=== PATIENT | male | born 1970 | race Caucasian/White ===

== ENCOUNTER 2017-06-15 00:29 | Inpatient (IN) | payer OTHER ==
[~2017-06-15 00:29] MED LIST: BUPIVACAINE HCL/PF 0.5% (5MG/ML) 10 ML VIAL IJ ONE
[2017-06-15 00:50] VITALS: BMI 30.4
--- NOTE | 2017-06-15 01:07 | PDOC ---
History of Present Illness - General Chief Complaint: Pain, Acute Stated Complaint: ABD PAIN Time Seen by Provider: 06/15/17 00:42 History Source: Patient Exam Limitations: No Limitations - History of Present Illness Travel History: No Initial Comments: 06/15/17 02:34 Best Contact:[phone] Pmhx:NIDDM/HTN Pshx:N/A Allergies: NKDA 46-year-old male presents to the emergency department complaining of periumbilical discomfort since last evening. Pain is described as 8/10 sharp nonradiating intermittent discomfort which is exacerbated on touch and alleviated minimally at rest. Patient denies nausea/vomiting, fever/chills, chest pain, shortness of breath, flank pains, urinary symptoms: Frequency/ urgency/hesitancy, hematuria. Patient denied having previous similar symptoms. Past History - Past Medical History Allergies/Adverse Reactions: Allergies Allergy/AdvReac Type Severity Reaction Status Date / Time No Known Allergies Allergy Verified 06/15/17 00:39 Home Medications: Ambulatory Orders Amlodipine Besylate/Benazepril [Lotrel 5-40 mg Capsule] 1 each PO DAILY Metformin HCl 500 mg PO BID 02/22/17 Polyvinyl Alcohol/Povidone [Artificial Tears Drops] 15 ml OP Q1H #2 drops Valacyclovir HCl [Valtrex] 1,000 mg PO TID #21 tablet 02/23/17 predniSONE [Deltasone -] 60 mg PO DAILY #15 tablet 02/23/17 COPD: No Diabetes: Yes (type 2) HTN: Yes - Suicide/Smoking/Psychosocial Hx Smoking History: Never smoked Have you smoked in the past 12 months: No Information on smoking cessation initiated: No Hx Alcohol Use: No Drug/Substance Use Hx: No Review of Systems - Review of Systems Able to Perform ROS?: Yes Comments:: 06/15/17 02:36 CONSTITUTIONAL: Absent: fever, chills, diaphoresis, generalized weakness, malaise, loss of appetite HEENT: Absent: rhinorrhea, nasal congestion, throat pain, throat swelling, difficulty swallowing, mouth swelling, ear pain, eye pain, visual Changes CARDIOVASCULAR: Absent: chest pain, loss of consciousness, palpitations, irregular heart rate, peripheral edema RESPIRATORY: Absent: cough, shortness of breath, dyspnea with exertion, orthopnea, wheezing, stridor, hemoptysis GASTROINTESTINAL: +periumbilical tenderness Absent: abdominal distension, nausea, vomiting, diarrhea, constipation, melena, hematochezia GENITOURINARY: Absent: dysuria, frequency, urgency, hesitancy, hematuria, flank pain, genital pain MUSCULOSKELETAL: Absent: myalgia, arthralgia, joint swelling SKIN: Absent: rash, itching, pallor HEMATOLOGIC/IMMUNOLOGIC: Absent: easy bleeding, easy bruising, lymphadenopathy, frequent infections ENDOCRINE: Absent: unexplained weight gain, unexplained weight loss, heat intolerance, cold intolerance NEUROLOGIC: Absent: headache, focal weakness or paresthesias, dizziness, unsteady gait, seizure, mental status changes, bladder or bowel incontinence PSYCHIATRIC: Absent: anxiety, depression, suicidal or homicidal ideation, hallucinations. Is the patient limited Spanish proficient: No *Physical Exam - Vital Signs Last Vital Signs Temp Pulse Resp BP Pulse Ox 98.3 F 96 H 20 118/76 98 06/15/17 00:39 06/15/17 00:39 06/15/17 00:39 06/15/17 00:39 06/15/17 00:39 - Physical Exam Comments: 06/15/17 02:36 GENERAL: Well developed, well nourished. Awake and alert. No acute distress. HEENT: Normocephalic, atraumatic. PERRLA, EOMI. No conjunctival pallor. Sclera are non- icteric. Moist mucous membranes. Oropharynx is clear. NECK: Supple. Full ROM. No JVD. Carotid pulses 2+ and symmetric, without bruits. No thyromegaly. No lymphadenopathy. CARDIOVASCULAR: Regular rate and rhythm. No murmurs, rubs, or gallops. Distal pulses are 2+ and symmetric. PULMONARY: No evidence of respiratory distress. Lungs clear to auscultation bilaterally. No wheezing, rales or rhonchi. ABDOMINAL: +Periumbilical pain on palp Soft. Non-distended. No rebound or guarding. No organomegaly. Normoactive bowel sounds. MUSCULOSKELETAL Normal range of motion at all joints. No bony deformities or tenderness. No CVA tenderness. EXTREMITIES: No cyanosis. No clubbing. No edema. No calf tenderness. SKIN: Warm and dry. Normal capillary refill. No rashes. No jaundice. ED Treatment Course - LABORATORY CBC & Chemistry Diagram: 06/15/17 02:05 06/15/17 02:05 - RADIOLOGY Radiograph Interpretation: 06/15/17 02:37 CT abd/pelvis with po/iv contrast: Impression: Small embolic or hernia containing omental fat. There is straining in the herniated fat and in the surrounding fat suggesting vascular congestion inflammation possible incarceration Progress Note - Progress Note Progress Note: 0401hrs: Called STORMY [phone] 0449hrs: called [facility]ARLY 0548hrs: Called KARLY/ Dr. Sharif cosmetics and toiletries salesperson 0556hrs: Medical Decision Making - Medical Decision Making 06/15/17 06:34 46-year-old male presents to the ER complaining of umbilical tenderness. Suspect incarcerated umbilical hernia. CT abdomen and pelvis done shows omentum possible incarceration. Spoke to general surgeonDr. Sharif who will see the patient within the hour as a surgical consult *DC/Admit/Observation/Transfer Diagnosis at time of Disposition: Umbilical hernia, incarcerated - Discharge Dispostion Condition at time of disposition: Stable Admit: Yes - Referrals Referrals: Everett Love [Primary Care Provider] - - Patient Instructions - Post Discharge Activity
[2017-06-15] MEDS ORDERED: morphine CARPU-JECT 2 MG/1 ML DISP.SYRIN IVPUSH ONE (01:08)
[2017-06-15] MEDS ORDERED: SODIUM CHLORIDE 1,000 ML IV STA (01:08)
[2017-06-15] MEDS ORDERED: morphine SULFATE 4 MG/ML VIAL ONE ×2 (01:51→05:27)
[2017-06-15 02:32] LABS: BASO % 0.6 % (0-2.0); EOS % 1.9 % (0-4.5); HEMATOCRIT 42.4 % (35.4-49); LYMPH % 38.8 % (8-40); MCH 32.6 pg (25.7-33.7); MCHC 35.5 g/dl (32.0-35.9); MEAN CELL VOLUME 91.9 fl (80-96); MEAN PLT VOLUME 8.6 fl (7.5-11.1); MONO % 11.2 % (3.8-10.2); NEUT % 47.5 % (42.8-82.8); PLATELET COUNT 313 K/MM3 (134-434); RBC 4.61 M/mm3 (4.00-5.60); RDW 12.4 % (11.9-15.9); WHITE BLOOD COUNT 13.4 K/mm3 (4.0-10.0)
[2017-06-15 03:06] LABS: ALBUMIN 4.1 g/dl (3.4-5.0); ANION GAP 13 (8-16); BILIRUBIN,TOTAL 0.5 mg/dL (0.2-1.0); BLOOD UREA NITROGEN 19 mg/dL (7-18); CALCIUM 9.3 mg/dL (8.5-10.1); CHLORIDE 103 mmol/L (98-107); CO2 23 mmol/L (21-32); CREATININE 0.6 mg/dL (0.7-1.3); GLUCOSE,RANDOM 110 mg/dL (74-106); SGPT/ALT 41 U/L (12-78); SODIUM 139 mmol/L (136-145); TOT PROT 7.6 g/dl (6.4-8.2)
[2017-06-15 03:07] LABS: ALK PHOS 80 U/L (45-117)
[2017-06-15 03:09] LABS: POTASSIUM 4.5 mmol/L (3.5-5.1); SGOT/AST 28 U/L (15-37)
[2017-06-15] MEDS ORDERED: morphine CARPU-JECT 4 MG/1 ML DISP.SYRIN IVPUSH ONE (05:24)
[2017-06-15] MEDS ORDERED: SODIUM CHLORIDE 1,000 ML IV SCH ×2 (06:15)
--- NOTE | 2017-06-15 08:03 | HP ---
Admitting History and Physical - Primary Care Physician PCP: Everett Love ([facility]) - Admission Chief Complaint: umbilical pain, redness, lump History of Present Illness: 46yoM with HTN, DM2, smoker, who has had small reducible bulge at umbilicus historically, noticed it coming in and out over last few days, but it always went back in. Yesterday, he noticed it did not anymore, and was getting painful and reddened. No nausea or vomiting, no fever or chills, no change in bowel habits, last BM yesterday, normal. He came to ER around midnight, last po was couple hours prior. In ER, wbc is 13, and CT showed fat-containing hernia with inflammatory changes but no bowel content. He has been hydrated and kept NPO. He is locally tender but without much pain and afebrile. 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 Home Medications - Allergies Allergies/Adverse Reactions: Allergies Allergy/AdvReac Type Severity Reaction Status Date / Time No Known Allergies Allergy Verified 06/15/17 00:39 - Home Medications Home Medications: Ambulatory Orders Amlodipine Besylate/Benazepril [Lotrel 5-40 mg Capsule] 1 each PO DAILY Metformin HCl 500 mg PO BID 02/22/17 Polyvinyl Alcohol/Povidone [Artificial Tears Drops] 15 ml OP Q1H #2 drops Family Disease History - Family Disease History Family History: Unremarkable Review of Systems - Review of Systems Constitutional: denies: Chills, Fever Eyes: reports: Other (uses glasses for distance). denies: Recent Change in Vision HENT: denies: Difficult Swallowing, Hearing Loss, Throat Pain Neck: denies: Swollen Glands, Tenderness Cardiovascular: denies: Chest Pain, Palpitations Respiratory: denies: Cough, SOB Gastrointestinal: reports: Abdominal Pain (with hpi). denies: Constipation, Diarrhea, Nausea, Vomiting Genitourinary: denies: Burning, Dysuria, Frequency, Urgency Musculoskeletal: reports: Back Pain (sometimes, neck/shoulders), Extremity Pain (lower legs sometimes). denies: Joint Pain, Muscle Pain Integumentary: reports: Change in Color (pink periumbilically, with hpi), Erythema. denies: Rash Neurological: reports: Headache (occasionally). denies: Dizziness Psychiatric: reports: Anxiety. denies: Depression Physical Examination Vital Signs: Vital Signs Temperature 97.7 F 06/15/17 07:33 Pulse Rate 76 06/15/17 07:33 Respiratory Rate 18 06/15/17 07:33 Blood Pressure 126/88 06/15/17 07:33 O2 Sat by Pulse Oximetry (%) 98 06/15/17 07:33 Constitutional: Yes: Well Nourished, No Distress, Anxious (mildly) Eyes: Yes: Conjunctiva Clear, EOM Intact HENT: Yes: Atraumatic, Normocephalic Neck: Yes: Supple, Trachea Midline Cardiovascular: Yes: Regular Rate and Rhythm. No: Murmur Respiratory: Yes: Regular, CTA Bilaterally. No: Wheezes Gastrointestinal: Yes: Normal Bowel Sounds, Soft, Abdomen, Obese, Hernia ( umbilical/periumbilical, not reducible, tender; skin deep pink with 5-8cm surrounding leaf tinner pink on skin), Tenderness (periumbilical/umbilical). No: Distention ...Rectal Exam: Yes: Deferred Renal/: No: CVA Tenderness - Left, CVA Tenderness - Right Musculoskeletal: No: Joint Stiffness, Joint Swelling Extremities: No: Cool, Cyanosis Edema: No Peripheral Pulses WNL: Yes Integumentary: Yes: Erythema (periumbilical and surrounding as noted above). No : Jaundice, Rash Neurological: Yes: Alert, Oriented Psychiatric: Yes: Alert, Oriented Labs: CBC, BMP 06/15/17 02:05 06/15/17 02:05 Imaging - Results Cat Scan: Image Reviewed (images personally reviewed - umbilical/periumbilical hernia with fatty content, appears inflamed, no bowel content) Problem List - Problems (1) Incarcerated ventral hernia Assessment/Plan: with associated erythema/cellulitis admit satellite/23H NPO/IVF until postop DVT prophylaxis IV antibiotics with plan to transition to oral for home in at least 24 hrs pending resolution of cellulitis FS with SSI - hold metformin [address] w/IV contrast continue home BP meds pain meds prn Discussed with patient risks, benefits and alternatives of laparoscopic possible open incarcerated ventral hernia repair, including but not limited to bleeding, infection, injury to intraabdominal structures, hernia development or recurrence; alternatives include antibiotics and no surgery - risks of this include progression of cellulitis, skin and fat necrosis, sepsis, . Patient agreeable to proceed with operation - will take to OR emergently for above. Informed consent signed for same. Code(s): K46.0 - UNSP ABDOMINAL HERNIA WITH OBSTRUCTION, WITHOUT GANGRENE (2) Dehydration, mild Assessment/Plan: IV fluid resuscitation anticipate resuming po postop Code(s): E86.0 - DEHYDRATION (3) Hypertension Assessment/Plan: continue home med Code(s): I10 - ESSENTIAL (PRIMARY) HYPERTENSION Qualifiers: Hypertension type: essential hypertension Qualified Code(s): I10 - Essential (primary) hypertension (4) Diabetes mellitus type 2, controlled, without complications Assessment/Plan: FS with SSI while here Code(s): E11.9 - TYPE 2 DIABETES MELLITUS WITHOUT COMPLICATIONS Qualifiers: Diabetes mellitus skilled nursing insulin use: without appliance sales associate use Qualified Code(s): E11.9 - Type 2 diabetes mellitus without complications (5) Tobacco dependence due to cigarettes Assessment/Plan: pt declined nicotine patch Code(s): F17.210 - NICOTINE DEPENDENCE, CIGARETTES, UNCOMPLICATED
[2017-06-15] MEDS ORDERED: LACTATED RINGERS SOLUTION 1,000 ML/1,000 ML INFUS.BAG IV SCH (08:45)
[2017-06-15] MEDS ORDERED: morphine SULFATE 4 MG/ML VIAL IM PRN ×3 (08:49→13:02)
[2017-06-15] MEDS ORDERED: IBUPROFEN 400 MG TABLET (FP) PO PRN ×3 (08:49→19:00)
[2017-06-15] MEDS ORDERED: ACETAMINOPHEN 325 MG TABLET (FP) PO PRN (08:49)
[2017-06-15] MEDS ORDERED: oxyCODONE HCL 5 MG TABLET PO PRN (08:52)
[2017-06-15] MEDS ORDERED: PROMETHAZINE HCL 25 MG/1 ML VIAL IVPUSH PRN (08:53)
[2017-06-15] MEDS ORDERED: ONDANSETRON 4 MG/2 ML VIAL IVPUSH PRN ×2 (08:53→13:02)
[2017-06-15] MEDS ORDERED: VANCOMYCIN 1 GRAM (PRE-DOCKED) 1,000 MG/250 ML BAG IVPB STA (08:55)
[2017-06-15] MEDS ORDERED: VANCOMYCIN 1 GRAM (PRE-DOCKED) 1,000 MG/250 ML BAG IVPB ONE (08:56)
[2017-06-15] MEDS ORDERED: LACTATED RINGERS SOLUTION 1,000 ML IV SCH (09:00)
[2017-06-15] MEDS ORDERED: VANCOMYCIN 1,000 MG in DEXTROSE 5%-WATER - 250 ML IVPB ONE (09:20)
[2017-06-15] MEDS ORDERED: PROPOFOL 20 ML ONE (09:41)
[2017-06-15] MEDS ORDERED: ROCURONIUM BROMIDE 50 MG/5 ML VIAL ONE ×2 (09:42→11:50)
[2017-06-15] MEDS ORDERED: LIDOCAINE HCL/PF 2% SDV 5ML VIAL ONE (09:42)
[2017-06-15] MEDS ORDERED: MIDAZOLAM HCL 2 MG/2 ML SINGLE DOSE VIAL ONE (09:42)
[2017-06-15] MEDS ORDERED: BUPIVACAINE HCL/PF 0.5% (5MG/ML) 10 ML VIAL ONE (10:29)
[2017-06-15] MEDS ORDERED: INSULIN SLIDING SCALE (NOVOLOG) 1 VIAL SQ SCH (11:00)
[2017-06-15] MEDS ORDERED: DEXAMETHASONE SOD PHOSPHATE 4 MG/1 ML VIAL ONE (11:05)
[2017-06-15] MEDS ORDERED: DESFLURANE GAS 240 ML BOTTLE IH ONE (11:20)
[2017-06-15] MEDS ORDERED: NEOSTIGMINE METHYLSULFATE 0.5 MG/ML - 10 ML MDV ONE (12:17)
[2017-06-15] MEDS ORDERED: GLYCOPYRROLATE 0.2 MG/1 ML VIAL ONE (12:17)
[2017-06-15] MEDS ORDERED: KETOROLAC TROMETHAMINE 30 MG/1 ML VIAL ONE (12:17)
[2017-06-15] MEDS ORDERED: BUPIVACAINE HCL/PF 0.5% (5MG/ML) 10 ML VIAL IJ ONE (12:23)
--- NOTE | 2017-06-15 12:51 | OP ---
Operative Note - Note: Operative Date: 06/15/17 Pre-Operative Diagnosis: incarcerated ventral hernia Operation: laparoscopic incarcerated ventral hernia repair Findings: incarcerated tip of omentum and preperitoneal fat reduced from hernia and excised, removed from abdomen; several portions of preperitoneal fat also removed around defect (~0.5cm) to allow for mesh placement; 11.4cm cher-ae heights Bard Echo PS mesh used for repair Implants: 11.4cm circular Bard Ventralight mesh with Echo PS Post-Operative Diagnosis: Same as Pre-op Surgeon: Freddy Sharif Swabber: Brian Brady Anesthesiologist/SENIOR ENERGY TRADER: Flavio Vieira Anesthesia: General, Local (15ml 0.5% marcaine) Specimens Removed: fat removed, none sent to pathology Estimated Blood Loss (mls): 10 Fluid Volume Replaced (mls): 400 (crystalloid) Operative Report Dictated: Yes
[2017-06-15] MEDS: LACTATED RINGERS SOLUTION 1,000 ML IV SCH (13:55)
[2017-06-15] MEDS ORDERED: INSULIN (NOVOLOG) ASPART 100 UNITS/ML 10ML VIAL ONE ×2 (16:55→17:56)
[2017-06-15] MEDS: INSULIN SLIDING SCALE (NOVOLOG) 1 VIAL SQ SCH ×2 (17:09→21:48)
[2017-06-15] MEDS ORDERED: ceFAZolin 2 GRAM PREMIX BAG IVPB SCH (18:00)
[2017-06-15] MEDS: ceFAZolin 2 GRAM PREMIX BAG IVPB SCH (18:02)
[2017-06-15] MEDS: oxyCODONE HCL 5 MG TABLET PO PRN (18:13)
[2017-06-15] MEDS: ACETAMINOPHEN 325 MG TABLET (FP) PO PRN (18:13)
[2017-06-15] MEDS ORDERED: PNEUMOC 13-VAL CONJ-DIP CRM/PF 0.5 ML DISP.SYRIN IM ONE (19:00)
[2017-06-16] MEDS: oxyCODONE HCL 5 MG TABLET PO PRN ×4 (00:46→16:26)
[2017-06-16] MEDS: ACETAMINOPHEN 325 MG TABLET (FP) PO PRN ×2 (00:47→07:04)
[2017-06-16] MEDS: LACTATED RINGERS SOLUTION 1,000 ML IV SCH (00:58)
[2017-06-16] MEDS: ceFAZolin 2 GRAM PREMIX BAG IVPB SCH ×3 (02:15→17:06)
[2017-06-16] MEDS: INSULIN SLIDING SCALE (NOVOLOG) 1 VIAL SQ SCH ×4 (06:26→21:21)
[2017-06-16 07:50] LABS: BASO % 0.1 % (0-2.0); EOS % 0.2 % (0-4.5); HEMOGLOBIN 12.9 GM/dL (11.7-16.9); LYMPH % 24.2 % (8-40); MCH 31.9 pg (25.7-33.7); MCHC 34.8 g/dl (32.0-35.9); MEAN CELL VOLUME 91.7 fl (80-96); MEAN PLT VOLUME 8.7 fl (7.5-11.1); MONO % 11.7 % (3.8-10.2); NEUT % 63.8 % (42.8-82.8); PLATELET COUNT 277 K/MM3 (134-434); RBC 4.03 M/mm3 (4.00-5.60); RDW 12.3 % (11.9-15.9); WHITE BLOOD COUNT 16.1 K/mm3 (4.0-10.0)
[2017-06-16 08:19] LABS: ANION GAP 12 (8-16); BLOOD UREA NITROGEN 14 mg/dL (7-18); CALCIUM 8.4 mg/dL (8.5-10.1); CHLORIDE 105 mmol/L (98-107); CO2 22 mmol/L (21-32); CREATININE 0.7 mg/dL (0.7-1.3); GLUCOSE,RANDOM 130 mg/dL (74-106); POTASSIUM 4.2 mmol/L (3.5-5.1); SODIUM 139 mmol/L (136-145)
[2017-06-16] MEDS: amLODIPine BESYLATE 5 MG TABLET (FP) PO SCH (09:07)
[2017-06-16] MEDS: LISINOPRIL 20 MG TABLET (FP) PO SCH (09:08)
[2017-06-16] MEDS ORDERED: LISINOPRIL 20 MG TABLET (FP) PO SCH (10:00)
[2017-06-16] MEDS ORDERED: PATIENT'S OWN MEDICATION (NON-FORMULARY) (Amlodipine Besylate/Benazepril [Lotrel 5-40 Mg C PO SCH (10:00)
[2017-06-16] MEDS ORDERED: amLODIPine BESYLATE 5 MG TABLET (FP) PO SCH (10:00)
--- NOTE | 2017-06-16 11:11 | PN ---
Progress Note (short form) - Note Progress Note: POD #1 - s/p laparoscopic ventral hernia repair with mesh under general anesthesia. VSS. Pt. doing well, walking about the room without difficulty. C/o some pain - pain management as per sx. No apparent anesthetic complications noted. Continue current care.
[2017-06-16] MEDS ORDERED: BISACODYL 5 MG TABLET.DR (FP) PO ONE (14:30)
--- NOTE | 2017-06-16 18:54 | CON.ID ---
Consult - History of Present Illness History of Present Illness: This is a 46 y.o. male with PMH of DM, HTN, active smoker who presented with periumbilical pain that began 1 day VAN [employer]. He has had a "bulge" umbilically but was able to push it in in the past but then was unable to and began developing erythema at the site. He denies fever, chills, n/v/d. In the ER he was found to have a mild leukocytosis (wbc - 13K) but afebrile. CT abd revealed fat- containing hernia with inflammation but no abscess. Pt is now s/p incarcerated ventral hernia repair/mesh placement. He is alert, complaining of pain. No other specific complaints. 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 Home Medications - Allergies Allergies/Adverse Reactions: Allergies Allergy/AdvReac Type Severity Reaction Status Date / Time No Known Allergies Allergy Verified 06/15/17 00:39 - Home Medications Home Medications: Ambulatory Orders Amlodipine Besylate/Benazepril [Lotrel 5-40 mg Capsule] 1 each PO DAILY Metformin HCl 500 mg PO BID 02/22/17 Polyvinyl Alcohol/Povidone [Artificial Tears Drops] 15 ml OP Q1H #2 drops Review of Systems - Review of Systems Constitutional: reports: No Symptoms Eyes: reports: No Symptoms HENT: reports: No Symptoms Neck: reports: No Symptoms Cardiovascular: reports: No Symptoms Respiratory: reports: No Symptoms Gastrointestinal: reports: Abdominal Pain Genitourinary: reports: No Symptoms Integumentary: reports: Erythema (periumbilical erythema/tenderness) Neurological: reports: Headache Endocrine: reports: No Symptoms Hematology/Lymphatic: reports: No Symptoms Psychiatric: reports: No Symptoms Physical Exam Vital Signs: Vital Signs Temperature 98.7 F 06/16/17 14:28 Pulse Rate 97 H 06/16/17 14:28 Respiratory Rate 21 06/16/17 14:28 Blood Pressure 126/83 06/16/17 14:28 O2 Sat by Pulse Oximetry (%) 98 06/16/17 09:00 Constitutional: Yes: No Distress Eyes: Yes: WNL HENT: Yes: WNL Neck: Yes: WNL Cardiovascular: Yes: Regular Rate and Rhythm Respiratory: Yes: CTA Bilaterally Gastrointestinal: Yes: Distention, Hypoactive Bowel Sounds Renal/: Yes: WNL Musculoskeletal: Yes: WNL Extremities: Yes: WNL Integumentary: Yes: Erythema (periumbilical erythema/warmth/tenderness), Incision Wound/Incision: Yes: Dressing Dry and Intact Neurological: Yes: Alert, Oriented Psychiatric: Yes: Alert Labs: CBC, BMP 06/16/17 06:50 06/16/17 06:50 Imaging - Results Cat Scan: Report Reviewed Problem List - Problems (1) Diabetes mellitus type 2, controlled, without complications Code(s): E11.9 - TYPE 2 DIABETES MELLITUS WITHOUT COMPLICATIONS Qualifiers: Diabetes mellitus senior living insulin use: without termite control technician use Qualified Code(s): E11.9 - Type 2 diabetes mellitus without complications (2) Hypertension Code(s): I10 - ESSENTIAL (PRIMARY) HYPERTENSION Qualifiers: Hypertension type: essential hypertension Qualified Code(s): I10 - Essential (primary) hypertension (3) Incarcerated ventral hernia Code(s): K46.0 - UNSP ABDOMINAL HERNIA WITH OBSTRUCTION, WITHOUT GANGRENE (4) Tobacco dependence due to cigarettes Code(s): F17.210 - NICOTINE DEPENDENCE, CIGARETTES, UNCOMPLICATED Assessment/Plan 46 y.o. male with DM, HTN presenting with periumbilical pain, erythema, leukocytosis Incarcerated umbilical hernia/Erythema s/p laparoscopic ventral hernia repair/mesh placement -- continue Ancef empirically for now -- monitor for improvement of erythema -- repeat cbc in am, monitor wbc -- pain control d/w Dr. Sharif Thank you
--- NOTE | 2017-06-16 19:42 | PN ---
Progress Note, Physician History of Present Illness: s/p laparoscopic incarcerated (fat) ventral hernia repair with mesh Pt seen and examined earlier today in room just after lunch. Having pain, had oxycodone couple hours earlier. No nausea or vomiting, no flatus or BM yet, ambulating, voiding. C/O abdominal distention. - Current Medication List Current Medications: Active Medications Acetaminophen (Tylenol -) 650 mg PO Q6H PRN PRN Reason: PAIN Last Admin: 06/16/17 07:04 Dose: 650 mg Amlodipine Besylate (Norvasc -) 5 mg PO DAILY [facility] Last Admin: 06/16/17 09:07 Dose: 5 mg Cefazolin Sodium/Dextrose (Ancef 2 Gm Premixed Ivpb -) 2 gm IVPB Q8H-IV [facility] Last Admin: 06/16/17 17:06 Dose: 2 gm Ibuprofen (Motrin -) 600 mg PO Q6H PRN PRN Reason: PAIN Last Admin: 06/16/17 18:49 Dose: 600 mg Insulin Aspart (Novolog Vial Sliding Scale -) 1 vial SQ ACHS [facility] PRN Reason: Protocol Last Admin: 06/16/17 16:29 Dose: Not Given Lisinopril (Prinivil) 40 mg PO DAILY [facility] Last Admin: 06/16/17 09:08 Dose: 40 mg Morphine Sulfate (Morphine Sulfate) 4 mg IM Q3H PRN PRN Reason: breakthrough pain Ondansetron HCl (Zofran Injection) 4 mg IVPUSH Q6H PRN PRN Reason: NAUSEA AND/OR VOMITING Oxycodone HCl (Roxicodone -) 5 mg PO Q4H PRN PRN Reason: breakthrough pain Last Admin: 06/16/17 16:26 Dose: 5 mg - Objective Vital Signs: Vital Signs Temperature 98.7 F 06/16/17 14:28 Pulse Rate 97 H 06/16/17 14:28 Respiratory Rate 21 06/16/17 14:28 Blood Pressure 126/83 06/16/17 14:28 O2 Sat by Pulse Oximetry (%) 98 06/16/17 09:00 Constitutional: Yes: Well Nourished, No Distress, Calm Eyes: Yes: Conjunctiva Clear, EOM Intact HENT: Yes: Atraumatic, Normocephalic Cardiovascular: Yes: Regular Rate and Rhythm Respiratory: Yes: Regular, CTA Bilaterally Gastrointestinal: Yes: Soft, Abdomen, Obese, Distention, Tenderness (mostly incisional, subxiphoid mainly, no R/G) Extremities: No: Cool, Cyanosis Integumentary: Yes: Erythema (faint/mild, about even with previous pen marking around periumbilical area), Incision (x4) Wound/Incision: Yes: Steri Strips (under dressings), Dressing Dry and Intact ( x4 - left abdomen with some dried bloodstain on gauze under tegaderm). No: Dressing Removed Neurological: Yes: Alert, Oriented. No: Unsteady Gait Labs: CBC, BMP 06/16/17 06:50 06/16/17 06:50 wbc up slightly, as expected Problem List - Problems (1) Incarcerated ventral hernia Assessment/Plan: with associated erythema/cellulitis s/p laparoscopic repair with mesh admitted as satellite - will change to full admit to continue IV antibiotics until erythema recedes more with plan to transition to oral for home consult ID to assist with abx management FS with SSI - hold metformin [address] w/IV contrast continue home BP meds will give dulcolax po to facilitate flatus and BM pain meds prn - encourage regular/alternating use of tylenol and ibuprofen with oxy as breakthrough Code(s): K46.0 - UNSP ABDOMINAL HERNIA WITH OBSTRUCTION, WITHOUT GANGRENE (2) Dehydration, mild Assessment/Plan: resolved Code(s): E86.0 - DEHYDRATION (3) Hypertension Assessment/Plan: continue home med Code(s): I10 - ESSENTIAL (PRIMARY) HYPERTENSION Qualifiers: Hypertension type: essential hypertension Qualified Code(s): I10 - Essential (primary) hypertension (4) Diabetes mellitus type 2, controlled, without complications Assessment/Plan: FS with SSI while here, will resume metformin [address] Code(s): E11.9 - TYPE 2 DIABETES MELLITUS WITHOUT COMPLICATIONS Qualifiers: Diabetes mellitus lobsterman insulin use: without mcc use Qualified Code(s): E11.9 - Type 2 diabetes mellitus without complications (5) Tobacco dependence due to cigarettes Code(s): F17.210 - NICOTINE DEPENDENCE, CIGARETTES, UNCOMPLICATED
[2017-06-17] MEDS ORDERED: PT OWN MED DRAWER 7, Y5N ONE (01:33)
[2017-06-17] MEDS: ceFAZolin 2 GRAM PREMIX BAG IVPB SCH ×3 (01:46→17:56)
[2017-06-17] MEDS: INSULIN SLIDING SCALE (NOVOLOG) 1 VIAL SQ SCH ×4 (06:32→21:33)
[2017-06-17 08:06] LABS: BASO % 0.4 % (0-2.0); EOS % 0.1 % (0-4.5); HEMATOCRIT 37.7 % (35.4-49); HEMOGLOBIN 13.3 GM/dL (11.7-16.9); LYMPH % 15.3 % (8-40); MCH 32.2 pg (25.7-33.7); MCHC 35.2 g/dl (32.0-35.9); MEAN CELL VOLUME 91.6 fl (80-96); MEAN PLT VOLUME 8.5 fl (7.5-11.1); MONO % 10.1 % (3.8-10.2); NEUT % 74.1 % (42.8-82.8); PLATELET COUNT 301 K/MM3 (134-434); RBC 4.12 M/mm3 (4.00-5.60); RDW 12.6 % (11.9-15.9); WHITE BLOOD COUNT 14.6 K/mm3 (4.0-10.0)
[2017-06-17] MEDS: amLODIPine BESYLATE 5 MG TABLET (FP) PO SCH (09:41)
[2017-06-17] MEDS: LISINOPRIL 20 MG TABLET (FP) PO SCH (09:41)
[2017-06-17] MEDS: ACETAMINOPHEN 325 MG TABLET (FP) PO PRN ×2 (10:01→22:15)
[2017-06-17] MEDS: oxyCODONE HCL 5 MG TABLET PO PRN ×2 (10:01→22:14)
[2017-06-17] MEDS: DOCUSATE SODIUM 100 MG CAPSULE (FP) PO PRN ×2 (12:26→21:34)
--- NOTE | 2017-06-17 13:37 | PN ---
Progress Note, Physician History of Present Illness: patient doing well no new issues still with tenderness and mild cellulitis - Current Medication List Current Medications: Active Medications Acetaminophen (Tylenol -) 650 mg PO Q6H PRN PRN Reason: PAIN Last Admin: 06/17/17 10:01 Dose: 650 mg Amlodipine Besylate (Norvasc -) 5 mg PO DAILY [facility] Last Admin: 06/17/17 09:41 Dose: 5 mg Cefazolin Sodium/Dextrose (Ancef 2 Gm Premixed Ivpb -) 2 gm IVPB Q8H-IV [facility] Last Admin: 06/17/17 09:42 Dose: 2 gm Docusate Sodium (Colace -) 100 mg PO Q8H PRN PRN Reason: CONSTIPATION Last Admin: 06/17/17 12:26 Dose: 100 mg Ibuprofen (Motrin -) 600 mg PO Q6H PRN PRN Reason: PAIN Last Admin: 06/16/17 18:49 Dose: 600 mg Insulin Aspart (Novolog Vial Sliding Scale -) 1 vial SQ ACHS [facility] PRN Reason: Protocol Last Admin: 06/17/17 10:32 Dose: 2 units Lisinopril (Prinivil) 40 mg PO DAILY [facility] Last Admin: 06/17/17 09:41 Dose: 40 mg Morphine Sulfate (Morphine Sulfate) 4 mg IM Q3H PRN PRN Reason: breakthrough pain Last Admin: 06/16/17 21:22 Dose: 4 mg Ondansetron HCl (Zofran Injection) 4 mg IVPUSH Q6H PRN PRN Reason: NAUSEA AND/OR VOMITING Last Admin: 06/17/17 02:08 Dose: 4 mg Oxycodone HCl (Roxicodone -) 5 mg PO Q4H PRN PRN Reason: breakthrough pain Last Admin: 06/17/17 10:01 Dose: 5 mg - Objective Vital Signs: Vital Signs Temperature 98.8 F 06/17/17 08:00 Pulse Rate 97 H 06/17/17 08:00 Respiratory Rate 20 06/17/17 08:00 Blood Pressure 135/85 06/17/17 08:00 O2 Sat by Pulse Oximetry (%) 97 06/17/17 08:00 Constitutional: Yes: No Distress, Calm Cardiovascular: Yes: Regular Rate and Rhythm Respiratory: Yes: Regular, CTA Bilaterally Gastrointestinal: Yes: Normal Bowel Sounds, Soft Musculoskeletal: Yes: WNL Extremities: Yes: WNL Integumentary: Yes: Other (erythema has decreased a lot) Wound/Incision: Yes: Clean/Dry, Other (tender) Neurological: Yes: Alert, Oriented Psychiatric: Yes: Alert, Oriented Labs: CBC, BMP 06/17/17 06:30 06/16/17 06:50 Assessment/Plan Problem List - Problems (1) Diabetes mellitus type 2, controlled, without complications Code(s): E11.9 - TYPE 2 DIABETES MELLITUS WITHOUT COMPLICATIONS Qualifiers: Diabetes mellitus termite control representative insulin use: without termite control representative use Qualified Code(s): E11.9 - Type 2 diabetes mellitus without complications (2) Hypertension Code(s): I10 - ESSENTIAL (PRIMARY) HYPERTENSION Qualifiers: Hypertension type: essential hypertension Qualified Code(s): I10 - Essential (primary) hypertension (3) Incarcerated ventral hernia Code(s): K46.0 - UNSP ABDOMINAL HERNIA WITH OBSTRUCTION, WITHOUT GANGRENE (4) Tobacco dependence due to cigarettes Code(s): F17.210 - NICOTINE DEPENDENCE, CIGARETTES, UNCOMPLICATED plan continue current abx tomorrow we should be able to switch to oral rest continue as per surgery c/o of not being able to have a bowel movement
--- NOTE | 2017-06-17 17:34 | PN ---
Progress Note, Physician History of Present Illness: s/p laparoscopic incarcerated (fat) ventral hernia repair with mesh Pt seen and examined sitting and lying in bed, just after dinner. No nausea or vomiting, passing flatus but no BM yet, ambulating, voiding. C/O abdominal distention and pain across lower abdomen at times. Using IS, splinting abdomen with coughing. Has used narcotic pain meds twice in last 24 hours. - Current Medication List Current Medications: Active Medications Acetaminophen (Tylenol -) 650 mg PO Q6H PRN PRN Reason: PAIN Last Admin: 06/17/17 10:01 Dose: 650 mg Amlodipine Besylate (Norvasc -) 5 mg PO DAILY [facility] Last Admin: 06/17/17 09:41 Dose: 5 mg Cefazolin Sodium/Dextrose (Ancef 2 Gm Premixed Ivpb -) 2 gm IVPB Q8H-IV [facility] Last Admin: 06/17/17 09:42 Dose: 2 gm Docusate Sodium (Colace -) 100 mg PO Q8H PRN PRN Reason: CONSTIPATION Last Admin: 06/17/17 12:26 Dose: 100 mg Ibuprofen (Motrin -) 600 mg PO Q6H PRN PRN Reason: PAIN Last Admin: 06/16/17 18:49 Dose: 600 mg Insulin Aspart (Novolog Vial Sliding Scale -) 1 vial SQ ACHS [facility] PRN Reason: Protocol Last Admin: 06/17/17 16:14 Dose: 2 units Lisinopril (Prinivil) 40 mg PO DAILY [facility] Last Admin: 06/17/17 09:41 Dose: 40 mg Ondansetron HCl (Zofran Injection) 4 mg IVPUSH Q6H PRN PRN Reason: NAUSEA AND/OR VOMITING Last Admin: 06/17/17 02:08 Dose: 4 mg Oxycodone HCl (Roxicodone -) 5 mg PO Q4H PRN PRN Reason: breakthrough pain Last Admin: 06/17/17 10:01 Dose: 5 mg - Objective Vital Signs: Vital Signs Temperature 98.2 F 06/17/17 15:27 Pulse Rate 80 06/17/17 15:27 Respiratory Rate 20 06/17/17 15:27 Blood Pressure 111/75 06/17/17 15:27 O2 Sat by Pulse Oximetry (%) 97 06/17/17 08:00 Constitutional: Yes: Well Nourished, No Distress, Calm Eyes: Yes: Conjunctiva Clear, EOM Intact HENT: Yes: Atraumatic, Normocephalic Gastrointestinal: Yes: Soft, Abdomen, Obese, Distention (not tympanic), Tenderness (mostly incisional, subxiphoid more than umbilical). No: Tenderness , Rebound Extremities: No: Cool, Cyanosis Integumentary: Yes: Incision (x4), Other (few small spots of adhesive irritation at edges of couple of dressings after removal, no blisters). No: Erythema (erythema resolved periumbilical area - no pink left) Wound/Incision: Yes: Steri Strips (intact x 4 - few with some dried blood underneath), Open to air (all four left KRIS), Dressing Dry and Intact (x4), Dressing Removed (x4) Neurological: Yes: Alert, Oriented Labs: CBC, BMP 06/17/17 06:30 06/16/17 06:50 Problem List - Problems (1) Incarcerated ventral hernia Assessment/Plan: with associated erythema/cellulitis s/p laparoscopic repair with mesh POD2 continue IV antibiotics today per ID erythema/cellulitis appears resolved plan to transition to oral for home likely d/c home around lunchtime tomorrow FS with SSI - can resume metformin in am continue home BP meds pain meds prn - encourage regular/alternating use of tylenol and ibuprofen with oxy as breakthrough only if needed will give dulcolax MI to facilitate BM if no results by am, will consider dose of relistor Code(s): K46.0 - UNSP ABDOMINAL HERNIA WITH OBSTRUCTION, WITHOUT GANGRENE (2) Hypertension Assessment/Plan: continue home med Code(s): I10 - ESSENTIAL (PRIMARY) HYPERTENSION Qualifiers: Hypertension type: essential hypertension Qualified Code(s): I10 - Essential (primary) hypertension (3) Diabetes mellitus type 2, controlled, without complications Assessment/Plan: FS with SSI while here, will resume metformin in am Code(s): E11.9 - TYPE 2 DIABETES MELLITUS WITHOUT COMPLICATIONS 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
[2017-06-17] MEDS ORDERED: BISACODYL 10 MG SUPP.RECT PR ONE (20:00)
[2017-06-17] MEDS ORDERED: BISACODYL 10 MG SUPP.RECT RC ONE (20:30)
[2017-06-17] MEDS ORDERED: POLYETHYLENE GLYCOL 3350 119 GM BTL PO ONE (22:15)
[2017-06-18] MEDS: ceFAZolin 2 GRAM PREMIX BAG IVPB SCH ×2 (01:56→11:17)
[2017-06-18] MEDS: INSULIN SLIDING SCALE (NOVOLOG) 1 VIAL SQ SCH ×3 (06:35→17:00)
[2017-06-18] MEDS: metFORMIN HCL 500 MG TABLET (FP) PO SCH ×2 (06:37→17:01)
[2017-06-18 08:26] LABS: BASO % 0.7 % (0-2.0); EOS % 1.6 % (0-4.5); HEMATOCRIT 39.7 % (35.4-49); HEMOGLOBIN 13.9 GM/dL (11.7-16.9); LYMPH % 27.2 % (8-40); MCH 32.1 pg (25.7-33.7); MEAN CELL VOLUME 91.8 fl (80-96); MEAN PLT VOLUME 8.4 fl (7.5-11.1); MONO % 13.3 % (3.8-10.2); NEUT % 57.2 % (42.8-82.8); PLATELET COUNT 326 K/MM3 (134-434); RBC 4.32 M/mm3 (4.00-5.60); RDW 12.6 % (11.9-15.9); WHITE BLOOD COUNT 11.9 K/mm3 (4.0-10.0)
[2017-06-18 10:07] VITALS: BP 116/77; PULSE 77; TEMP 98.6
[2017-06-18] MEDS ORDERED: PT OWN MED DRAWER 7, Y5N ONE (11:15)
[2017-06-18] MEDS: amLODIPine BESYLATE 5 MG TABLET (FP) PO SCH (11:17)
[2017-06-18] MEDS: LISINOPRIL 20 MG TABLET (FP) PO SCH (11:17)
--- NOTE | 2017-06-18 11:21 | PN ---
Progress Note, Physician History of Present Illness: s/p laparoscopic incarcerated (fat) ventral hernia repair with mesh Pt seen and examined after ambulating in halls. No nausea or vomiting, passing flatus but no BM yet. C/O abdominal distention, pain improving, ok without narcotics. Using IS, splinting abdomen with coughing. Did get tylenol and oxycodone last night. - Current Medication List Current Medications: Active Medications Acetaminophen (Tylenol -) 650 mg PO Q6H PRN PRN Reason: PAIN Last Admin: 06/17/17 22:15 Dose: 650 mg Amlodipine Besylate (Norvasc -) 5 mg PO DAILY [facility] Last Admin: 06/17/17 09:41 Dose: 5 mg Cefazolin Sodium/Dextrose (Ancef 2 Gm Premixed Ivpb -) 2 gm IVPB Q8H-IV [facility] Last Admin: 06/18/17 01:56 Dose: 2 gm Docusate Sodium (Colace -) 100 mg PO Q8H PRN PRN Reason: CONSTIPATION Last Admin: 06/17/17 21:34 Dose: 100 mg Ibuprofen (Motrin -) 600 mg PO Q6H PRN PRN Reason: PAIN Last Admin: 06/16/17 18:49 Dose: 600 mg Insulin Aspart (Novolog Vial Sliding Scale -) 1 vial SQ ACHS [facility] PRN Reason: Protocol Last Admin: 06/18/17 06:35 Dose: Not Given Lisinopril (Prinivil) 40 mg PO DAILY [facility] Last Admin: 06/17/17 09:41 Dose: 40 mg Metformin HCl (Glucophage -) 500 mg PO BIDAC [facility] Last Admin: 06/18/17 06:37 Dose: 500 mg Ondansetron HCl (Zofran Injection) 4 mg IVPUSH Q6H PRN PRN Reason: NAUSEA AND/OR VOMITING Last Admin: 06/17/17 02:08 Dose: 4 mg - Objective Vital Signs: Vital Signs Temperature 98.6 F 06/18/17 10:00 Pulse Rate 77 06/18/17 10:00 Respiratory Rate 20 06/18/17 10:00 Blood Pressure 116/77 06/18/17 10:00 O2 Sat by Pulse Oximetry (%) 98 06/17/17 23:00 Constitutional: Yes: Well Nourished, No Distress, Calm Eyes: Yes: Conjunctiva Clear, EOM Intact HENT: Yes: Atraumatic, Normocephalic Cardiovascular: Yes: Regular Rate and Rhythm. No: Murmur Respiratory: Yes: Regular, CTA Bilaterally Gastrointestinal: Yes: Soft, Abdomen, Obese, Distention, Hypoactive Bowel Sounds , Tenderness (incisional, appropriate) Extremities: No: Cool, Cyanosis Integumentary: Yes: Incision (x4 with steris), Other (small adhesive irritations around where midline dressings were; small blister periumbilical). No: Erythema (no pink around umbilical region), Jaundice Wound/Incision: Yes: Steri Strips (intact x4), Open to air Neurological: Yes: Alert, Oriented Labs: CBC 06/18/17 07:00 - ....Imaging X-ray: Image Reviewed (personally reviewed - all contrast in colon with lots of stool, vault empty, no signs obstruction, no dilated loops, no AFL) Problem List - Problems (1) Postoperative ileus Assessment/Plan: Pt still distended and without BM but passing flatus. AXR just done showing contrast throughout colon with likely stool, but only minimal gas in SB, no dilated loops, no air-fluid levels, rectal vault appears empty Will try mag citrate May need enema to facilitate function from below D/C narcotics pt would like to pass stool before discharge Code(s): K91.89 - OTH POSTPROCEDURAL COMPLICATIONS AND DISORDERS OF DGSTV SYS; K56.7 - ILEUS, UNSPECIFIED (2) Incarcerated ventral hernia Assessment/Plan: with associated erythema/cellulitis s/p laparoscopic repair with mesh POD3 change to oral abx Augmentin erythema/cellulitis resolved back on metformin continue home BP meds pain meds prn - d/c narcotics Code(s): K46.0 - UNSP ABDOMINAL HERNIA WITH OBSTRUCTION, WITHOUT GANGRENE (3) Hypertension Assessment/Plan: continue home med Code(s): I10 - ESSENTIAL (PRIMARY) HYPERTENSION Qualifiers: Hypertension type: essential hypertension Qualified Code(s): I10 - Essential (primary) hypertension (4) Diabetes mellitus type 2, controlled, without complications Assessment/Plan: back on metformin Code(s): E11.9 - TYPE 2 DIABETES MELLITUS WITHOUT COMPLICATIONS 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
[2017-06-18] MEDS ORDERED: MAGNESIUM CITRATE 300 ML BOTTLE PO ONE (11:45)
[2017-06-18] MEDS ORDERED: AMOX TR/POT CLAV 875MG/125MG TABLETS (FP) PO SCH (11:47)
--- NOTE | 2017-06-18 13:49 | PN ---
Progress Note, Physician History of Present Illness: doing well no new issues - Current Medication List Current Medications: Active Medications Acetaminophen (Tylenol -) 650 mg PO Q6H PRN PRN Reason: PAIN Last Admin: 06/17/17 22:15 Dose: 650 mg Amlodipine Besylate (Norvasc -) 5 mg PO DAILY [facility] Last Admin: 06/18/17 11:17 Dose: 5 mg Amoxicillin/Clavulanate Potassium (Augmentin - 875mg Tablet) 1 tab PO BID@0800, 2000 [facility] Last Admin: 06/18/17 12:34 Dose: 1 tab Docusate Sodium (Colace -) 100 mg PO Q8H PRN PRN Reason: CONSTIPATION Last Admin: 06/17/17 21:34 Dose: 100 mg Ibuprofen (Motrin -) 600 mg PO Q6H PRN PRN Reason: PAIN Last Admin: 06/16/17 18:49 Dose: 600 mg Insulin Aspart (Novolog Vial Sliding Scale -) 1 vial SQ ACHS [facility] PRN Reason: Protocol Last Admin: 06/18/17 11:47 Dose: Not Given Lisinopril (Prinivil) 40 mg PO DAILY [facility] Last Admin: 06/18/17 11:17 Dose: 40 mg Metformin HCl (Glucophage -) 500 mg PO BIDAC [facility] Last Admin: 06/18/17 06:37 Dose: 500 mg Ondansetron HCl (Zofran Injection) 4 mg IVPUSH Q6H PRN PRN Reason: NAUSEA AND/OR VOMITING Last Admin: 06/17/17 02:08 Dose: 4 mg - Objective Vital Signs: Vital Signs Temperature 98.6 F 06/18/17 10:00 Pulse Rate 77 06/18/17 10:00 Respiratory Rate 20 06/18/17 10:00 Blood Pressure 116/77 06/18/17 10:00 O2 Sat by Pulse Oximetry (%) 98 06/17/17 23:00 Constitutional: Yes: No Distress, Calm Cardiovascular: Yes: Regular Rate and Rhythm Respiratory: Yes: Regular, CTA Bilaterally Gastrointestinal: Yes: Normal Bowel Sounds, Soft Musculoskeletal: Yes: WNL Extremities: Yes: WNL Integumentary: Yes: Other (cellulitits resolved) Neurological: Yes: Alert, Oriented Psychiatric: Yes: Alert, Oriented Labs: CBC, BMP 06/18/17 07:00 06/16/17 06:50 Assessment/Plan Problem List - Problems (1) Diabetes mellitus type 2, controlled, without complications Code(s): E11.9 - TYPE 2 DIABETES MELLITUS WITHOUT COMPLICATIONS 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
--- NOTE | 2017-06-18 17:58 | DS ---
Physical Examination Vital Signs: Vital Signs Temperature 98.6 F 06/18/17 10:00 Pulse Rate 77 06/18/17 10:00 Respiratory Rate 20 06/18/17 10:00 Blood Pressure 116/77 06/18/17 10:00 O2 Sat by Pulse Oximetry (%) 98 06/17/17 23:00 Findings/Remarks: Pt seen and examined earlier - see progress note from today. Ambulating, voiding , tolerating diet. Using nonnarcotics for pain today. Pain mainly incisional. Had BMs after magnesium citrate today. Cellulitis at periumbilical area resolved. Antibiotics changed from IV to oral. Constitutional: Yes: Well Nourished, No Distress, Calm Eyes: Yes: Conjunctiva Clear, EOM Intact HENT: Yes: Atraumatic, Normocephalic Cardiovascular: Yes: Regular Rate and Rhythm. No: Murmur Respiratory: Yes: Regular, CTA Bilaterally Gastrointestinal: Yes: Soft, Abdomen, Obese, Distention (not tympanic), Tenderness (incisional, appropriate) ...Rectal Exam: Yes: Deferred Extremities: No: Cool, Cyanosis Integumentary: Yes: Incision (x4 with steris), Other (few small adhesive irritations at dressing sites on abdomen, one small blister periumbilical). No : Erythema, Jaundice Wound/Incision: Yes: Steri Strips (x4 intact), Open to air Neurological: Yes: Alert, Oriented. No: Unsteady Gait Labs: CBC, BMP 06/18/17 07:00 06/16/17 06:50 Discharge Summary Reason For Visit: incarcerated ventral hernia Current Active Problems Cellulitis of abdominal wall (Acute) Dehydration, mild (Acute) Diabetes mellitus type 2, controlled, without complications (Acute) Hypertension (Acute) Incarcerated ventral hernia (Acute) Postoperative ileus (Acute) Tobacco dependence due to cigarettes (Acute) Procedures: Principal: laparoscopic incarcerated ventral hernia repair (with mesh) Hospital Course: 46yo obese M, diabetic, smoker, presented with 1 day of umbilical bulge with redness, pain and tenderness, and surrounding area of erythema on skin. He had elevated wbc, and CT showed fat-containing hernia with inflammatory changes surrounding as well. Admitted to surgery for incarcerated ventral hernia with cellulitis, taken to OR for laparoscopic repair. Kept on IV antibiotics until all erythema had resolved, then changed to oral today for discharge. Pt also had postop ileus, with no BM since arrival despite Dulcolax, colace, suppository , until magnesium citrate today had good effect. He has been ambulating, voiding , tolerating diet, and has resumed all home meds. Using tylenol and ibuprofen for pain, last had oxycodone yesterday. Ready for d/c home with f/u in 2 weeks, and PMD followup as well. To complete Augmentin course po. Condition: Improved - Instructions Diet, Activity, Other Instructions: Postoperative instructions: You had a laparoscopic incarcerated ventral hernia repair on 06/15/[address] Freddy Sharif of [facility]. Activity: Resume your usual activities gradually, but no heavy exertion or lifting more than 10-15 pounds for 4-6 weeks. Sticky tapes on incisions will fall off by themselves. You may shower daily, just pat the incision areas dry. No bath or swimming until skin incisions have healed. Eat lightly at first, but advance to your usual diet as tolerated. Take all antibiotics as prescribed. Pain: For pain, you may use and alternate Tylenol (acetaminophen) and/or ibuprofen every 6 hours each as needed; this means that you can take one OR the other at 3-hour intervals. Do not take more than 4000mg of acetaminophen in a day. Take medications as prescribed or indicated on the labeling. Follow-up: Call Dr. Sharif's office at [phone] to make your postop appointment (~2 weeks after surgery). Clinic is held in the [facility] on the first floor of [facility]. Call the office if you have: * increasing pain not responsive to pain medication * fever of 101F or higher * vomiting * unusual or increasing bleeding or drainage from wounds * increasing redness or swelling at wound sites Also, see your primary medical doctor (Dr. Love) within 1-2 weeks. Referrals: Freddy Sharif MD [Staff Physician] - 2 Weeks Everett Love [Primary Care Provider] - Disposition: HOME - Home Medications Comprehensive Discharge Medication List: Ambulatory Orders Amlodipine Besylate/Benazepril [Lotrel 5-40 mg Capsule] 1 each PO DAILY Metformin HCl 500 mg PO BID 02/22/17 Polyvinyl Alcohol/Povidone [Artificial Tears Drops] 15 ml OP Q1H #2 drops Acetaminophen [Tylenol .Regular Strength -] 650 mg PO Q6H PRN tablet 06/18/17 Amox-Tr/K Cl [Augmentin 875-125mg Tablet -] 1 tab PO BID #10 tablet 06/18/17 Docusate Sodium [Colace -] 100 mg PO BID PRN #60 capsule 06/18/17 Ibuprofen [Motrin -] 600 mg PO Q6H PRN tablet 06/18/17
== END 2017-06-18 20:15 | disposition home or self-care (01) | DRG 227 ==
LOC: JER 00:29 → JASUSAT 06:05 → J6S 12:50 → JASUSAT 12:51 → J6S 12:51
PROVIDERS: ADMIT Surgery; ATTEND Surgery
PROC: 0WQF4ZZ Repair Abdominal Wall, Percutaneous Endoscopic Approach (ICD-10-PCS; principal; 2017-06-15 10:00)
DX: K46.0 Unspecified abdominal hernia with obstruction, without gangrene (principal); E86.0 Dehydration; I10 Essential (primary) hypertension; E11.9 Type 2 diabetes mellitus without complications; F17.210 Nicotine dependence, cigarettes, uncomplicated; K91.89 Other postprocedural complications and disorders of digestive system; K56.7 Ileus, unspecified; Y83.9 Surgical procedure, unspecified as the cause of abnormal reaction of the patient, or of later complication, without mention of misadventure at the time of the procedure; L03.311 Cellulitis of abdominal wall; K43.6 Other and unspecified ventral hernia with obstruction, without gangrene
CPT/HCPCS: 36415; 74019-TC-FY; 74177-TC; 80048; 80053; 82962; 85025; 86850; 86900; 86901; 90670; 94010; 94760; 99284-25; J7030